=== PATIENT | male | born 1950 | race Caucasian/White ===

== ENCOUNTER 2019-06-22 12:32 | Inpatient (IN) | payer OTHER, MEDICAID ==
[~2019-06-22] VITALS: Ht 177.8 cm; Wt 102.5 kg
[2019-06-22 17:07] LABS: CHLORIDE 107 mEq/L (98-107)
[2019-06-22 17:09] LABS: INR 1.2; PARTIAL THROMBOPLASTIN TIME 28.7 sec (23.4-31.0); PROTHROMBIN TIME 13.1 sec (9.6-11.0)
[2019-06-22 17:10] LABS: ETHANOL BLOOD < 10 mg/dL
[2019-06-22 17:19] LABS: CREATINE KINASE MB FRACTION 1.3 ng/mL (0.5-3.6)
[2019-06-22 18:16] LABS: BASOPHILS % 1.3 % (0.0-2.0); EOSINOPHILS % 0.5 % (0.0-5.0); HEMATOCRIT. 29.1 % (42.0-52.0); HEMOGLOBIN. 9.7 g/dL (14.0-18.0); LYMPHOCYTES % 21.5 % (20.0-50.0); MEAN CORPUSCULAR HEMOGLOBIN 31.3 pg (28.0-32.0); MEAN CORPUSCULAR VOLUME 93.6 fL (80.0-94.0); MEAN PLATELET VOLUME 9.8 fl (7.4-10.4); MONOCYTES % 4.9 % (2.0-8.0); NEUTROPHILS % 71.8 % (40.0-76.0); PLATELET 73 x1000/uL (130-400); RED BLOOD CELL COUNT 3.11 mill/uL (4.7-6.1); RED CELL DISTRIBUTION WIDTH 18.1 % (11.6-14.6)
[2019-06-22 23:10] LABS: *AMPHETAMINES SCREEN URINE NEGATIVE (NEGATIVE); *BARBITURATES SCREEN URINE NEGATIVE (NEGATIVE); *BENZODIAZEPINES SCREEN URINE NEGATIVE (NEGATIVE); *COCAINE SCREEN URINE NEGATIVE (NEGATIVE); METHADONE URINE SCREEN NEGATIVE (NEGATIVE); OPIATES URINE SCREEN NEGATIVE (NEGATIVE)
[2019-06-22 23:11] LABS: CANNABINOID URINE SCREEN NEGATIVE (NEGATIVE); PHENCYCLIDINE URINE SCREEN NEGATIVE (NEGATIVE)
[2019-06-23] VITALS (59 sets, daily range): BP systolic 81–144; BP diastolic 37–78
[2019-06-23] MEDS: DEXT 5%/LACTATED RINGERS 1,000 ML IV SCH ×2 (05:35→19:45)
[2019-06-23] MEDS ORDERED: THROMBIN (BOVINE) 5000 UNITS/VIAL TOP ONE (06:37)
[2019-06-23] MEDS ORDERED: LIDOCAINE HCL/EPINEPHRINE 1%-EPI 1:100,000 20 ML VIAL ONE (06:38)
[2019-06-23] MEDS ORDERED: BACITRACIN 50,000 UNITS/VIAL ONE (06:38)
[2019-06-23] MEDS ORDERED: PNEUMOCOCCAL 23-VAL P-SAC VAC 0.5 ML IM ONE (08:00)
[2019-06-23] MEDS ORDERED: INFLUENZA VIRUS VACCINE(AFLURIA) 0.5ML SYR IM ONE (10:00)
[2019-06-23] MEDS ORDERED: HYDROCODONE/ACETAMINOPHEN 5/325MG TABLET PO PRN (10:15)
[2019-06-23] MEDS ORDERED: ONDANSETRON HCL 4MG/2ML INJ IV PRN (10:15)
[2019-06-23] MEDS ORDERED: ACETAMINOPHEN 325MG TABLET PO PRN (10:15)
[2019-06-23 15:34] LABS: BG BASE EXCESS -7.2 mmol/L (-2.0-2.0); BG CARBOXYHEMOGLOBIN 0.3 % (0.5-1.5); BG DEOXYHEMOGLOBIN 0.1 % (0.0-5.0); BG FRACTION INSPIRED OXYGEN 100; BG HCO3 ACT 17.5 mmol/L (22.0-26.0); BG METHEMOGLOBIN 0.4 % (0.0-1.5); BG OXYGEN SATURATION 99.9 % (92.0-98.5); BG OXYHEMOGLOBIN 99.2 % (94.0-97.0); BG PH 7.343 (7.350-7.450); BG PO2 518.1 mmHg (75.0-100.0); BG SAMPLE SITE A-LINE; BG TIDAL VOLUME(mL) 500 mL; BG TOTAL HEMOGLOBIN 12.8 g/dL (12.0-18.0); BG VENT MODE VENT - A/C; BG VENT RATE 10 set
[2019-06-23] MEDS ORDERED: PROPOFOL 10MG/ML 100ML 100 ML IV PRN (16:15)
[2019-06-23] MEDS: HYDROMORPHONE HCL/PF 2MG/ML CPJ IV PRN (19:45)
[2019-06-23] MEDS: PHENYLEPHRINE 40 MG in DEXT 5% WATER 246 ML IV PRN (20:25)
[2019-06-24] VITALS (67 sets, daily range): BP systolic 81–139; BP diastolic 41–114
[2019-06-24 08:15] LABS: BG BASE EXCESS -7.9 mmol/L (-2.0-2.0); BG CARBOXYHEMOGLOBIN 0.3 % (0.5-1.5); BG DEOXYHEMOGLOBIN 1.3 % (0.0-5.0); BG HCO3 ACT 15.1 mmol/L (22.0-26.0); BG METHEMOGLOBIN 0.1 % (0.0-1.5); BG OXYGEN SATURATION 98.7 % (92.0-98.5); BG OXYHEMOGLOBIN 98.3 % (94.0-97.0); BG PCO2 23.9 mmHg (35.0-45.0); BG PH 7.418 (7.350-7.450); BG SAMPLE SITE A-LINE; BG TIDAL VOLUME(mL) 500 mL; BG TOTAL HEMOGLOBIN 10.7 g/dL (12.0-18.0); BG VENT MODE VENT - A/C; BG VENT RATE 10 set
[2019-06-24 10:25] LABS: BG BASE EXCESS -5.9 mmol/L (-2.0-2.0); BG CARBOXYHEMOGLOBIN 0.3 % (0.5-1.5); BG CPAP (cmH2O) 0 cm(H2O); BG DEOXYHEMOGLOBIN 1.3 % (0.0-5.0); BG HCO3 ACT 17.6 mmol/L (22.0-26.0); BG METHEMOGLOBIN 0.6 % (0.0-1.5); BG OXYGEN SATURATION 98.7 % (92.0-98.5); BG OXYHEMOGLOBIN 97.8 % (94.0-97.0); BG PCO2 28.7 mmHg (35.0-45.0); BG PH 7.406 (7.350-7.450); BG PO2 153.3 mmHg (75.0-100.0); BG SAMPLE SITE A-LINE; BG TOTAL HEMOGLOBIN 11.9 g/dL (12.0-18.0); BG VENT MODE VENT - CPAP
[2019-06-24 12:42] LABS: BG BASE EXCESS -6.2 mmol/L (-2.0-2.0); BG CARBOXYHEMOGLOBIN 0.3 % (0.5-1.5); BG DEOXYHEMOGLOBIN 1.6 % (0.0-5.0); BG HCO3 ACT 17.4 mmol/L (22.0-26.0); BG METHEMOGLOBIN 0.3 % (0.0-1.5); BG OXYGEN SATURATION 98.4 % (92.0-98.5); BG OXYHEMOGLOBIN 97.8 % (94.0-97.0); BG PCO2 29.1 mmHg (35.0-45.0); BG PH 7.395 (7.350-7.450); BG SAMPLE SITE RIGHT RADIAL; BG VENT MODE MASK - AEROSOL
[2019-06-24 12:56] LABS: HEMATOCRIT. 33.1 % (42.0-52.0); HEMOGLOBIN. 11.3 g/dL (14.0-18.0); MEAN CORPUSCULAR VOLUME 93.2 fL (80.0-94.0); MEAN PLATELET VOLUME 8.5 fl (7.4-10.4); RED BLOOD CELL COUNT 3.55 mill/uL (4.7-6.1); RED CELL DISTRIBUTION WIDTH 18.8 % (11.6-14.6)
[2019-06-24 13:04] LABS: HEMATOCRIT. 32.5 % (42.0-52.0); HEMOGLOBIN. 11.1 g/dL (14.0-18.0); MEAN CORPUSCULAR HEMOGLOBIN 32.1 pg (28.0-32.0); MEAN CORPUSCULAR VOLUME 94.2 fL (80.0-94.0); MEAN PLATELET VOLUME 8.8 fl (7.4-10.4); RED BLOOD CELL COUNT 3.45 mill/uL (4.7-6.1); RED CELL DISTRIBUTION WIDTH 18.4 % (11.6-14.6)
[2019-06-24 13:05] LABS: PLATELET 88 x1000/uL (130-400)
[2019-06-24 13:10] LABS: PLATELET 98 x1000/uL (130-400)
[2019-06-24 13:14] LABS: PLATELET ESTIMATE DECREASED
[2019-06-24 13:27] LABS: PLATELET ESTIMATE DECREASED
[2019-06-24] MEDS: DEXT 5%/LACTATED RINGERS 1,000 ML IV SCH (14:17)
[2019-06-24] MEDS: HYDROMORPHONE HCL/PF 2MG/ML CPJ IV PRN (21:21)
[2019-06-25] VITALS (101 sets, daily range): BP systolic 67–124; BP diastolic 20–68
[2019-06-25] MEDS: PHENYLEPHRINE 40 MG in DEXT 5% WATER 246 ML IV PRN (01:43)
[2019-06-25] MEDS: DEXT 5%/LACTATED RINGERS 1,000 ML IV SCH (05:03)
[2019-06-25 10:04] LABS: BASOPHILS % 0.2 % (0.0-2.0); EOSINOPHILS % 0.3 % (0.0-5.0); HEMATOCRIT. 26.5 % (42.0-52.0); HEMOGLOBIN. 8.8 g/dL (14.0-18.0); LYMPHOCYTES % 16.8 % (20.0-50.0); MEAN CORPUSCULAR HEMOGLOBIN 31.2 pg (28.0-32.0); MEAN PLATELET VOLUME 9.7 fl (7.4-10.4); MONOCYTES % 6.3 % (2.0-8.0); NEUTROPHILS % 76.4 % (40.0-76.0); PLATELET 65 x1000/uL (130-400); RED BLOOD CELL COUNT 2.82 mill/uL (4.7-6.1); RED CELL DISTRIBUTION WIDTH 19.3 % (11.6-14.6)
[2019-06-25] MEDS: MIDODRINE HCL 5MG TABLET PO SCH ×3 (10:04→17:32)
[2019-06-25] MEDS ORDERED: PHENOL/SODIUM PHENOLATE 1.4% SRPAY 177ML MM SCH (11:00)
[2019-06-25] MEDS ORDERED: LACTATED RINGERS 1,000 ML IV SCH (12:15)
[2019-06-25] MEDS: SODIUM CHLORIDE 0.9% 1,000 ML IV SCH ×2 (14:03→22:12)
[2019-06-25] MEDS: HYDROMORPHONE HCL/PF 2MG/ML CPJ IV PRN ×2 (15:13→20:15)
[2019-06-25] MEDS ORDERED: ALBUMIN HUMAN 12.5G/250ML (5%) IV NR (15:30)
[2019-06-25 17:37] LABS: TOTAL IRON BINDING CAPACITY 229 ug/dL (250-450)
[2019-06-26] VITALS (95 sets, daily range): BP systolic 60–121; BP diastolic 29–89
[2019-06-26] MEDS: HYDROMORPHONE HCL/PF 2MG/ML CPJ IV PRN ×4 (01:45→23:30)
[2019-06-26] MEDS: SODIUM CHLORIDE 0.9% 1,000 ML IV SCH ×3 (05:44→22:02)
[2019-06-26 08:13] LABS: HEMATOCRIT. 32.8 % (42.0-52.0); HEMOGLOBIN. 11.1 g/dL (14.0-18.0); MEAN CORPUSCULAR HEMOGLOBIN 33.6 pg (28.0-32.0); MEAN CORPUSCULAR VOLUME 98.9 fL (80.0-94.0); MEAN PLATELET VOLUME 10.5 fl (7.4-10.4); PLATELET 103 x1000/uL (130-400); RED BLOOD CELL COUNT 3.32 mill/uL (4.7-6.1); RED CELL DISTRIBUTION WIDTH 19.7 % (11.6-14.6)
[2019-06-26] MEDS: MIDODRINE HCL 5MG TABLET PO SCH ×3 (09:16→17:00)
[2019-06-26] MEDS ORDERED: LIDOCAINE HCL 1% 20ML VIAL (Pyxis) INJ ONE (10:17)
[2019-06-26 10:49] LABS: PLATELET ESTIMATE DECREASED
[2019-06-26] MEDS: ALBUMIN HUMAN 12.5GM/50ML (25%) IV SCH ×5 (11:21→23:30)
[2019-06-26 17:00] LABS: INR 1.4; PROTHROMBIN TIME 15.4 sec (9.6-11.0)
[2019-06-26] MEDS: PHENYLEPHRINE 40 MG in DEXT 5% WATER 246 ML IV PRN (18:07)
[2019-06-26] MEDS: PHENYLEPHRINE 80 MG in DEXT 5% WATER 492 ML IV PRN (22:03)
[2019-06-27] VITALS (99 sets, daily range): BP systolic 80–150; BP diastolic 32–99
[2019-06-27] MEDS: ALBUMIN HUMAN 12.5GM/50ML (25%) IV SCH (03:30)
[2019-06-27] MEDS: SODIUM CHLORIDE 0.9% 1,000 ML IV SCH ×3 (05:38→21:03)
[2019-06-27] MEDS: PHENYLEPHRINE 80 MG in DEXT 5% WATER 492 ML IV PRN ×2 (07:58→17:58)
[2019-06-27] MEDS: MIDODRINE HCL 5MG TABLET PO SCH ×3 (09:23→21:05)
[2019-06-27] MEDS: HYDROMORPHONE HCL/PF 2MG/ML CPJ IV PRN ×2 (09:24→21:12)
[2019-06-27 10:47] LABS: HEMATOCRIT. 31.4 % (42.0-52.0); HEMOGLOBIN. 10.5 g/dL (14.0-18.0); MEAN CORPUSCULAR HEMOGLOBIN 31.2 pg (28.0-32.0); MEAN CORPUSCULAR VOLUME 93.7 fL (80.0-94.0); MEAN PLATELET VOLUME 8.6 fl (7.4-10.4); RED BLOOD CELL COUNT 3.35 mill/uL (4.7-6.1); RED CELL DISTRIBUTION WIDTH 18.7 % (11.6-14.6)
[2019-06-27 10:48] LABS: PLATELET 81 x1000/uL (130-400)
[2019-06-27 11:24] LABS: PLATELET ESTIMATE DECREASED
[2019-06-27] MEDS ORDERED: MIDODRINE HCL 5MG TABLET PO SCH (13:00)
[2019-06-27 13:03] LABS: INR 1.7; PROTHROMBIN TIME 18.1 sec (9.6-11.0)
[2019-06-27] MEDS ORDERED: RACEPINEPHRINE 2.25% 0.5ML NEB VIAL HHN PRN (13:45)
[2019-06-28] VITALS (64 sets, daily range): BP systolic 76–150; BP diastolic 36–69
[2019-06-28] MEDS: SODIUM CHLORIDE 0.9% 1,000 ML IV SCH ×2 (05:26→16:38)
[2019-06-28] MEDS: MIDODRINE HCL 5MG TABLET PO SCH ×3 (05:38→22:00)
[2019-06-28 07:14] LABS: HEMATOCRIT. 28.9 % (42.0-52.0); MEAN CORPUSCULAR HEMOGLOBIN 33.8 pg (28.0-32.0); MEAN CORPUSCULAR VOLUME 97.5 fL (80.0-94.0); MEAN PLATELET VOLUME 9.1 fl (7.4-10.4); PLATELET 64 x1000/uL (130-400); RED BLOOD CELL COUNT 2.96 mill/uL (4.7-6.1); RED CELL DISTRIBUTION WIDTH 18.7 % (11.6-14.6)
[2019-06-28] MEDS: HYDROMORPHONE HCL/PF 2MG/ML CPJ IV PRN ×2 (08:36→11:06)
[2019-06-28 08:44] LABS: PLATELET ESTIMATE DECREASED
[2019-06-28] MEDS: HYDROCODONE/ACETAMINOPHEN 5/325MG TABLET PO PRN (22:51)
[2019-06-29] VITALS: BP 127/62
[2019-06-29 04:00] VITALS: BP 107/50
[2019-06-29] MEDS: SODIUM CHLORIDE 0.9% 1,000 ML IV SCH ×3 (04:51→13:03)
[2019-06-29] MEDS: MIDODRINE HCL 5MG TABLET PO SCH ×3 (06:20→22:38)
[2019-06-29] MEDS: HYDROCODONE/ACETAMINOPHEN 5/325MG TABLET PO PRN (06:20)
[2019-06-29 08:00] VITALS: BP 135/54
[2019-06-29 09:27] LABS: HEMATOCRIT. 28.4 % (42.0-52.0); HEMOGLOBIN. 9.6 g/dL (14.0-18.0); MEAN CORPUSCULAR HEMOGLOBIN 32.6 pg (28.0-32.0); MEAN CORPUSCULAR VOLUME 96.6 fL (80.0-94.0); MEAN PLATELET VOLUME 8.6 fl (7.4-10.4); PLATELET 56 x1000/uL (130-400); RED BLOOD CELL COUNT 2.94 mill/uL (4.7-6.1); RED CELL DISTRIBUTION WIDTH 19.5 % (11.6-14.6)
[2019-06-29 11:07] LABS: PLATELET ESTIMATE DECREASED
[2019-06-29 12:00] VITALS: BP 115/53
[2019-06-29] MEDS ORDERED: HYDROCODONE/ACETAMINOPHEN 5/325MG TABLET PO PRN (12:45)
[2019-06-29 16:00] VITALS: BP 125/52
[2019-06-29 20:00] VITALS: BP 117/55
[2019-06-30] VITALS (8 sets, daily range): BP systolic 105–123; BP diastolic 48–63
[2019-06-30] MEDS: MIDODRINE HCL 5MG TABLET PO SCH ×2 (05:16→14:00)
[2019-06-30 10:49] LABS: HEMATOCRIT. 27.1 % (42.0-52.0); HEMOGLOBIN. 9.5 g/dL (14.0-18.0); MEAN CORPUSCULAR HEMOGLOBIN 32.6 pg (28.0-32.0); MEAN CORPUSCULAR VOLUME 92.9 fL (80.0-94.0); MEAN PLATELET VOLUME 8.5 fl (7.4-10.4); RED BLOOD CELL COUNT 2.92 mill/uL (4.7-6.1); RED CELL DISTRIBUTION WIDTH 18.5 % (11.6-14.6)
[2019-06-30 10:50] LABS: PLATELET 87 x1000/uL (130-400)
[2019-06-30 11:41] LABS: PLATELET ESTIMATE DECREASED
== END 2019-06-30 21:55 | DRG 471 ==
LOC: ER 14:16 → EDBEDREQTM 20:30 → EDBEDREQ 20:30 → MICUSO 20:43 → EDBEDREQTM 20:45 → EDBEDREQSVC 20:45 → EDBEDREQ 20:46 → 6WST 06-28 16:12
PROVIDERS: ADMIT Internal Medicine; ATTEND Internal Medicine
PROC: 0RG2071 Fusion of 2 or more Cervical Vertebral Joints with Autologous Tissue Substitute, Posterior Approach, Posterior Column, Open Approach (ICD-10-PCS; principal; 2019-06-23)
PROC: 00NW0ZZ Release Cervical Spinal Cord, Open Approach (ICD-10-PCS; 2019-06-23)
PROC: 4A11X4G Monitoring of Peripheral Nervous Electrical Activity, Intraoperative, External Approach (ICD-10-PCS; 2019-06-23)
PROC: 02HV33Z Insertion of Infusion Device into Superior Vena Cava, Percutaneous Approach (ICD-10-PCS; 2019-06-26)
PROC: B548ZZA Ultrasonography of Superior Vena Cava, Guidance (ICD-10-PCS; 2019-06-26)
DX: M48.02 Spinal stenosis, cervical region (principal); G82.50 Quadriplegia, unspecified; K76.7 Hepatorenal syndrome; N17.9 Acute kidney failure, unspecified; I50.32 Chronic diastolic (congestive) heart failure; E46 Unspecified protein-calorie malnutrition; D68.9 Coagulation defect, unspecified; I13.0 Hypertensive heart and chronic kidney disease with heart failure and stage 1 through stage 4 chronic kidney disease, or unspecified chronic kidney disease; M47.12 Other spondylosis with myelopathy, cervical region; G99.2 Myelopathy in diseases classified elsewhere; D64.9 Anemia, unspecified; N18.9 Chronic kidney disease, unspecified; E86.0 Dehydration; D69.59 Other secondary thrombocytopenia; E78.00 Pure hypercholesterolemia, unspecified; E78.1 Pure hyperglyceridemia; F17.210 Nicotine dependence, cigarettes, uncomplicated; I25.10 Atherosclerotic heart disease of native coronary artery without angina pectoris; I83.90 Asymptomatic varicose veins of unspecified lower extremity; J44.9 Chronic obstructive pulmonary disease, unspecified; K59.00 Constipation, unspecified; K70.30 Alcoholic cirrhosis of liver without ascites; K72.90 Hepatic failure, unspecified without coma; M47.22 Other spondylosis with radiculopathy, cervical region; R62.7 Adult failure to thrive; S20.211A Contusion of right front wall of thorax, initial encounter; W18.39XA Other fall on same level, initial encounter; I95.9 Hypotension, unspecified; R16.0 Hepatomegaly, not elsewhere classified; R29.6 Repeated falls; G90.8 Other disorders of autonomic nervous system; K80.20 Calculus of gallbladder without cholecystitis without obstruction; R16.1 Splenomegaly, not elsewhere classified; D15.1 Benign neoplasm of heart; Y93.89 Activity, other specified; Z68.32 Body mass index [BMI] 32.0-32.9, adult; Y92.89 Other specified places as the place of occurrence of the external cause; Y99.8 Other external cause status
CPT/HCPCS: 36415; 36600; 71045; 71250; 72040; 72141; 74176; 76000; 76700; 76937; 80048; 80053; 80305; 80320; 82105; 82375; 82550; 82553; 82728; 82805; 82962; 83540; 83550; 83605; 83735; 83880; 84134; 84145; 84478; 84484; 85025; 85651; 86141; 86850; 86900; 86920; 88304; 88311; 90686; 90732; 92610; 93005; 93306; 93308; 93970; 94002; 94003; 97162; 97166; 97530; 99285; C1713; C1725; J1170; J2370; J2704; J3490; J7030; J7060; J7121; L0172; P9041; P9047; G0480

== ENCOUNTER 2019-07-12 11:11 | Inpatient (IN) | payer OTHER, MEDICAID ==
[~2019-07-12] VITALS: Ht 172.7 cm; Wt 108.9 kg
[2019-07-12 13:02] LABS: INR 1.4
[2019-07-12 13:03] LABS: CHLORIDE 105 mEq/L (98-107)
[2019-07-12 13:18] LABS: BG BASE EXCESS -12.5 mmol/L (-2.0-2.0); BG CARBOXYHEMOGLOBIN 0.3 % (0.5-1.5); BG DEOXYHEMOGLOBIN 6.2 % (0.0-5.0); BG FRACTION INSPIRED OXYGEN 21; BG HCO3 ACT 12.7 mmol/L (22.0-26.0); BG METHEMOGLOBIN 0.4 % (0.0-1.5); BG OXYGEN SATURATION 93.8 % (92.0-98.5); BG OXYHEMOGLOBIN 93.1 % (94.0-97.0); BG PCO2 27.1 mmHg (35.0-45.0); BG PH 7.288 (7.350-7.450); BG PO2 74.3 mmHg (75.0-100.0); BG SAMPLE SITE RIGHT RADIAL; BG TOTAL HEMOGLOBIN 10.7 g/dL (12.0-18.0); BG VENT MODE ROOM AIR
[2019-07-12] MEDS ORDERED: MORPHINE SULFATE 4 MG/ML CPJ (NOT FOR IM USE) IV ONE ×2 (13:30→16:15)
[2019-07-12] MEDS ORDERED: ONDANSETRON HCL 4MG/2ML INJ IV ONE ×2 (13:30→16:15)
[2019-07-12 13:46] LABS: HEMATOCRIT. 26.9 % (42.0-52.0); HEMOGLOBIN. 10.4 g/dL (14.0-18.0); MEAN CORPUSCULAR HEMOGLOBIN 44.1 pg (28.0-32.0); MEAN CORPUSCULAR VOLUME 114.2 fL (80.0-94.0); MEAN PLATELET VOLUME 8.3 fl (7.4-10.4); PLATELET 155 x1000/uL (130-400); RED BLOOD CELL COUNT 2.35 mill/uL (4.7-6.1); RED CELL DISTRIBUTION WIDTH 23.7 % (11.6-14.6)
[2019-07-12 15:32] LABS: PLATELET ESTIMATE NORMAL
[2019-07-13 00:30] VITALS: BP 108/54
[2019-07-13] MEDS ORDERED: MIDO5TAB4 PO (01:07)
[2019-07-13] MEDS ORDERED: DONE5TAB7 PO (01:07)
[2019-07-13] MEDS ORDERED: TOPUD PO (01:07)
[2019-07-13] MEDS ORDERED: HYDR-3281 PO (01:07)
[2019-07-13] MEDS ORDERED: FURO-152 PO (01:07)
[2019-07-13] MEDS: HYDROCODONE/ACETAMINOPHEN 5/325MG TABLET PO PRN ×3 (01:35→18:22)
[2019-07-13] MEDS ORDERED: SODIUM POLYSTYRENE SULFONATE 15 G/60 ML BOT PO SCH (03:00)
[2019-07-13 04:00] VITALS: BP 108/55
[2019-07-13 08:00] VITALS: BP 123/60
[2019-07-13] MEDS ORDERED: FUROSEMIDE 40MG/4ML VIAL IVP SCH (09:00)
[2019-07-13] MEDS ORDERED: SODIUM POLYSTYRENE SULFONATE 15 G/60 ML BOT PO NR (09:30)
[2019-07-13] MEDS: MIDODRINE HCL 5MG TABLET PO SCH ×3 (09:49→18:21)
[2019-07-13] MEDS: DONEPEZIL HCL 5MG TABLET PO SCH (09:50)
[2019-07-13 12:00] VITALS: BP 102/63
[2019-07-13 12:33] LABS: PLATELET 115 x1000/uL (130-400)
[2019-07-13 12:34] LABS: HEMATOCRIT. 29.8 % (42.0-52.0); HEMOGLOBIN. 10.4 g/dL (14.0-18.0); MEAN CORPUSCULAR HEMOGLOBIN 34.6 pg (28.0-32.0); MEAN PLATELET VOLUME 8.3 fl (7.4-10.4); RED BLOOD CELL COUNT 3.01 mill/uL (4.7-6.1); RED CELL DISTRIBUTION WIDTH 21.5 % (11.6-14.6)
[2019-07-13 12:54] LABS: PLATELET ESTIMATE DECREASED
[2019-07-13] MEDS ORDERED: ALBUMIN HUMAN 25GM/100ML (25%) IV NR (14:00)
[2019-07-13] MEDS ORDERED: LEVOFLOXACIN 500MG PREMIX 100 ML IV SCH (15:00)
[2019-07-13] MEDS: CITRIC ACID/SODIUM CITRATE SOLN 30ML UDC PO SCH ×2 (15:33→18:20)
[2019-07-13 16:00] VITALS: BP 112/51
[2019-07-13] MEDS: BLOOD SUGAR DIAGNOSTIC STRIP TEST SCH ×2 (17:20→21:00)
[2019-07-13 17:24] LABS: CLARITY URINE TURBID (CLEAR); COLOR URINE DARK YELLOW (YELLOW); KETONES URINE NEGATIVE (NEGATIVE); LEUKOCYTE ESTERASE URINE 1+ (NEGATIVE); NITRITE URINE NEGATIVE (NEGATIVE); OCCULT BLOOD URINE 3+ (NEGATIVE); PROTEIN URINE 2+ (NEGATIVE); SPECIFIC GRAVITY URINE 1.014 (1.005-1.030)
[2019-07-13] MEDS: INSULIN LISPRO 100 UNITS/ML SUBCUT SCH ×2 (17:50→21:00)
[2019-07-13 18:05] LABS: SODIUM URINE RANDOM 30 mEq/L
[2019-07-13] MEDS: PANTOPRAZOLE SODIUM 40 MG/VIAL IV SCH (18:21)
[2019-07-13 20:00] VITALS: BP 109/68
[2019-07-14] VITALS: BP 103/80
[2019-07-14 04:00] VITALS: BP 100/59
[2019-07-14] MEDS: BLOOD SUGAR DIAGNOSTIC STRIP TEST SCH ×4 (06:39→21:23)
[2019-07-14] MEDS: INSULIN LISPRO 100 UNITS/ML SUBCUT SCH ×4 (07:50→21:00)
[2019-07-14 08:00] VITALS: BP 99/51
[2019-07-14 09:14] LABS: HEMATOCRIT. 23.3 % (42.0-52.0); HEMOGLOBIN. 7.9 g/dL (14.0-18.0); MEAN CORPUSCULAR HEMOGLOBIN 36.5 pg (28.0-32.0); PLATELET 65 x1000/uL (130-400); RED BLOOD CELL COUNT 2.17 mill/uL (4.7-6.1); RED CELL DISTRIBUTION WIDTH 23.8 % (11.6-14.6)
[2019-07-14 09:25] LABS: PHOSPHORUS 5.7 mg/dL (2.5-4.9)
[2019-07-14] MEDS ORDERED: SODIUM POLYSTYRENE SULFONATE 15 G/60 ML BOT PO NR (09:45)
[2019-07-14] MEDS ORDERED: ALBUMIN HUMAN 25GM/100ML (25%) IV NR (09:45)
[2019-07-14] MEDS: DONEPEZIL HCL 5MG TABLET PO SCH (11:19)
[2019-07-14] MEDS: PANTOPRAZOLE SODIUM 40 MG/VIAL IV SCH ×2 (11:19→17:57)
[2019-07-14] MEDS: CITRIC ACID/SODIUM CITRATE SOLN 30ML UDC PO SCH ×3 (11:19→17:57)
[2019-07-14] MEDS: MIDODRINE HCL 5MG TABLET PO SCH ×3 (11:22→17:57)
[2019-07-14 11:23] LABS: PLATELET ESTIMATE DECREASED
[2019-07-14] MEDS: HYDROCODONE/ACETAMINOPHEN 5/325MG TABLET PO PRN ×2 (11:49→15:54)
[2019-07-14 12:00] VITALS: BP 101/57
[2019-07-14] MEDS ORDERED: SODIUM BICARBONATE 4% (2.4MEQ) 5ML VIAL IV ONE (12:06)
[2019-07-14] MEDS ORDERED: LIDOCAINE HCL 1% 20ML VIAL (Pyxis) INJ ONE (12:06)
[2019-07-14] MEDS ORDERED: LEVOFLOXACIN 250MG PREMIX 50 ML IV SCH (15:00)
[2019-07-14] MEDS: CEFTRIAXONE 1 G PREMIX 50 ML IV SCH (15:09)
[2019-07-14 15:11] LABS: HEPATITIS B SURFACE AB 50.1 mIU/mL
[2019-07-14 15:22] LABS: HEPATITIS B SURFACE ANTIGEN NEGATIVE
[2019-07-14 16:00] VITALS: BP 101/52
[2019-07-14] MEDS: MORPHINE SULFATE 2 MG/ML CPJ (NOT FOR IM USE) IV PRN ×2 (18:10→22:30)
[2019-07-14 20:00] VITALS: BP 98/58
[2019-07-14] MEDS: DEXTROSE 50% WATER 50ML SYRINGE IV PRN (22:30)
[2019-07-15] VITALS: BP 99/50
[2019-07-15 04:30] VITALS: BP 105/55
[2019-07-15] MEDS: BLOOD SUGAR DIAGNOSTIC STRIP TEST SCH ×4 (06:22→21:00)
[2019-07-15] MEDS: INSULIN LISPRO 100 UNITS/ML SUBCUT SCH ×4 (07:38→21:00)
[2019-07-15 08:00] VITALS: BP 116/49
[2019-07-15] MEDS: CITRIC ACID/SODIUM CITRATE SOLN 30ML UDC PO SCH ×3 (08:52→17:00)
[2019-07-15] MEDS: PANTOPRAZOLE SODIUM 40 MG/VIAL IV SCH ×2 (08:52→18:00)
[2019-07-15] MEDS: MIDODRINE HCL 5MG TABLET PO SCH ×3 (08:53→17:00)
[2019-07-15] MEDS: DONEPEZIL HCL 5MG TABLET PO SCH (08:54)
[2019-07-15 09:17] LABS: PHOSPHORUS 4.5 mg/dL (2.5-4.9)
[2019-07-15 10:10] LABS: HEMOGLOBIN. 10.1 g/dL (14.0-18.0); MEAN PLATELET VOLUME 8.6 fl (7.4-10.4); RED BLOOD CELL COUNT 2.87 mill/uL (4.7-6.1)
[2019-07-15 10:11] LABS: HEMATOCRIT. 28.4 % (42.0-52.0); MEAN CORPUSCULAR HEMOGLOBIN 35.2 pg (28.0-32.0); RED CELL DISTRIBUTION WIDTH 22.9 % (11.6-14.6)
[2019-07-15 12:00] VITALS: BP 82/42
[2019-07-15] MEDS ORDERED: ALBUMIN HUMAN 25GM/100ML (25%) IV NR (13:00)
[2019-07-15 13:26] LABS: PLATELET ESTIMATE DECREASED
[2019-07-15 13:27] LABS: PLATELET 104 x1000/uL (130-400)
[2019-07-15] MEDS: CEFTRIAXONE 1 G PREMIX 50 ML IV SCH (15:01)
[2019-07-15 16:00] VITALS: BP 87/51
[2019-07-15 20:40] VITALS: BP 109/46
[2019-07-16] VITALS: BP 111/50
[2019-07-16 04:00] VITALS: BP 95/47
[2019-07-16] MEDS: BLOOD SUGAR DIAGNOSTIC STRIP TEST SCH ×4 (06:37→20:44)
[2019-07-16] MEDS: INSULIN LISPRO 100 UNITS/ML SUBCUT SCH ×4 (07:17→20:44)
[2019-07-16 08:22] VITALS: BP 96/49
[2019-07-16] MEDS: DONEPEZIL HCL 5MG TABLET PO SCH (08:32)
[2019-07-16] MEDS: CITRIC ACID/SODIUM CITRATE SOLN 30ML UDC PO SCH (08:32)
[2019-07-16] MEDS: MIDODRINE HCL 5MG TABLET PO SCH ×3 (08:32→16:46)
[2019-07-16] MEDS: PANTOPRAZOLE SODIUM 40 MG/VIAL IV SCH ×2 (08:32→16:46)
[2019-07-16] MEDS ORDERED: ONDANSETRON HCL 4MG/2ML INJ IV PRN (09:00)
[2019-07-16 12:04] VITALS: BP 98/39
[2019-07-16] MEDS: CEFTRIAXONE 1 G PREMIX 50 ML IV SCH (13:50)
[2019-07-16 16:33] VITALS: BP 87/38
[2019-07-16 16:49] LABS: HEMATOCRIT. 28.8 % (42.0-52.0); MEAN CORPUSCULAR HEMOGLOBIN 34.3 pg (28.0-32.0); MEAN CORPUSCULAR VOLUME 98.3 fL (80.0-94.0); RED BLOOD CELL COUNT 2.93 mill/uL (4.7-6.1)
[2019-07-16 16:50] LABS: RED CELL DISTRIBUTION WIDTH 23.8 % (11.6-14.6)
[2019-07-16 20:00] VITALS: BP 107/54
[2019-07-16] MEDS: FUROSEMIDE 40MG TABLET PO SCH (21:43)
[2019-07-17] VITALS (7 sets, daily range): BP systolic 91–98; BP diastolic 36–49
[2019-07-17] MEDS: MORPHINE SULFATE 2 MG/ML CPJ (NOT FOR IM USE) IV PRN ×2 (01:13→05:18)
[2019-07-17 07:35] LABS: BASOPHILS % 0.6 % (0.0-2.0); EOSINOPHILS % 0.5 % (0.0-5.0); HEMATOCRIT. 29.4 % (42.0-52.0); HEMOGLOBIN. 9.8 g/dL (14.0-18.0); MEAN CORPUSCULAR HEMOGLOBIN 34.5 pg (28.0-32.0); MEAN CORPUSCULAR VOLUME 103.9 fL (80.0-94.0); MEAN PLATELET VOLUME 9.7 fl (7.4-10.4); MONOCYTES % 11.2 % (2.0-8.0); NEUTROPHILS % 42.7 % (40.0-76.0); PLATELET 69 x1000/uL (130-400); RED BLOOD CELL COUNT 2.83 mill/uL (4.7-6.1); RED CELL DISTRIBUTION WIDTH 25.1 % (11.6-14.6)
[2019-07-17 07:47] LABS: PLATELET ESTIMATE DECREASED
[2019-07-17 07:48] LABS: MEAN PLATELET VOLUME 9.1 fl (7.4-10.4); PLATELET 81 x1000/uL (130-400)
[2019-07-17] MEDS: INSULIN LISPRO 100 UNITS/ML SUBCUT SCH ×4 (07:50→21:00)
[2019-07-17 07:55] LABS: CHLORIDE 106 mEq/L (98-107); PHOSPHORUS 3.7 mg/dL (2.5-4.9)
[2019-07-17] MEDS: BLOOD SUGAR DIAGNOSTIC STRIP TEST SCH ×4 (07:56→21:37)
[2019-07-17] MEDS: PANTOPRAZOLE SODIUM 40 MG/VIAL IV SCH ×2 (09:00→16:22)
[2019-07-17] MEDS: MIDODRINE HCL 5MG TABLET PO SCH ×3 (10:34→16:36)
[2019-07-17] MEDS: DONEPEZIL HCL 5MG TABLET PO SCH (10:35)
[2019-07-17] MEDS: FUROSEMIDE 40MG TABLET PO SCH ×2 (10:35→21:37)
[2019-07-17 12:00] LABS: PLATELET ESTIMATE DECREASED
[2019-07-17] MEDS: CEFTRIAXONE 1 G PREMIX 50 ML IV SCH (14:49)
[2019-07-18] MEDS: DIPHENHYDRAMINE 50MG/ML VIAL IV PRN ×2 (00:24→22:56)
[2019-07-18 04:00] VITALS: BP 108/46
[2019-07-18] MEDS: BLOOD SUGAR DIAGNOSTIC STRIP TEST SCH ×4 (06:40→21:00)
[2019-07-18 07:07] LABS: PHOSPHORUS 4.1 mg/dL (2.5-4.9)
[2019-07-18] MEDS: INSULIN LISPRO 100 UNITS/ML SUBCUT SCH ×4 (07:50→21:00)
[2019-07-18 08:00] VITALS: BP 117/70
[2019-07-18] MEDS: MIDODRINE HCL 5MG TABLET PO SCH ×3 (09:47→17:53)
[2019-07-18] MEDS: PANTOPRAZOLE SODIUM 40 MG/VIAL IV SCH ×2 (09:47→17:52)
[2019-07-18] MEDS: FUROSEMIDE 40MG TABLET PO SCH ×2 (09:47→22:56)
[2019-07-18] MEDS: DONEPEZIL HCL 5MG TABLET PO SCH (09:47)
[2019-07-18 09:56] LABS: HEMATOCRIT. 30.9 % (42.0-52.0); HEMOGLOBIN. 10.4 g/dL (14.0-18.0); MEAN CORPUSCULAR HEMOGLOBIN 32.9 pg (28.0-32.0); MEAN CORPUSCULAR VOLUME 97.2 fL (80.0-94.0); MEAN PLATELET VOLUME 7.8 fl (7.4-10.4); RED BLOOD CELL COUNT 3.18 mill/uL (4.7-6.1); RED CELL DISTRIBUTION WIDTH 23.7 % (11.6-14.6)
[2019-07-18 09:57] LABS: PLATELET 92 x1000/uL (130-400)
[2019-07-18 12:00] VITALS: BP 111/56
[2019-07-18 12:18] LABS: PLATELET ESTIMATE DECREASED
[2019-07-18 13:11] LABS: ANTI-MYELOPEROXIDASE AB < 9.0 U/mL (0.0-9.0); ANTI-PROTEINASE 3 ABS < 3.5 U/mL (0.0-3.5); ATYPICAL P-ANCA <1:20 titer (Neg:<1:20); CYTOPLASMIC C-ANCA <1:20 titer (Neg:<1:20); PERINUCLEAR P-ANCA <1:20 titer (Neg:<1:20)
[2019-07-18] MEDS: CEFTRIAXONE 1 G PREMIX 50 ML IV SCH (14:18)
[2019-07-18 16:00] VITALS: BP 102/48
[2019-07-18 20:22] VITALS: BP 105/52
[2019-07-19] VITALS: BP 101/49
[2019-07-19 04:00] VITALS: BP 98/46
[2019-07-19 06:09] LABS: INR 1.9; PROTHROMBIN TIME 19.8 sec (9.6-11.0)
[2019-07-19] MEDS: BLOOD SUGAR DIAGNOSTIC STRIP TEST SCH ×4 (06:32→21:00)
[2019-07-19 06:35] LABS: PHOSPHORUS 4.2 mg/dL (2.5-4.9)
[2019-07-19 07:12] LABS: GLOMERULAR BASEMENT MEMB AB 4 units (0-20)
[2019-07-19] MEDS: INSULIN LISPRO 100 UNITS/ML SUBCUT SCH ×4 (07:32→21:00)
[2019-07-19 08:00] VITALS: BP 126/77
[2019-07-19] MEDS: PANTOPRAZOLE SODIUM 40 MG/VIAL IV SCH ×2 (09:07→17:15)
[2019-07-19] MEDS: FUROSEMIDE 40MG TABLET PO SCH ×2 (09:08→21:00)
[2019-07-19] MEDS: MIDODRINE HCL 5MG TABLET PO SCH ×3 (09:08→17:15)
[2019-07-19] MEDS: DONEPEZIL HCL 5MG TABLET PO SCH (09:08)
[2019-07-19] MEDS: MORPHINE SULFATE 2 MG/ML CPJ (NOT FOR IM USE) IV PRN ×2 (09:09→13:13)
[2019-07-19 10:31] LABS: HEMATOCRIT. 31.2 % (42.0-52.0); HEMOGLOBIN. 10.7 g/dL (14.0-18.0); MEAN CORPUSCULAR HEMOGLOBIN 33.7 pg (28.0-32.0); MEAN CORPUSCULAR VOLUME 97.9 fL (80.0-94.0); RED BLOOD CELL COUNT 3.18 mill/uL (4.7-6.1); RED CELL DISTRIBUTION WIDTH 23.2 % (11.6-14.6)
[2019-07-19 11:23] LABS: MEAN PLATELET VOLUME 9.3 fl (7.4-10.4); PLATELET 86 x1000/uL (130-400); PLATELET ESTIMATE DECREASED
[2019-07-19 12:00] VITALS: BP 102/58
[2019-07-19] MEDS: LEVOFLOXACIN 250MG TABLET PO SCH (13:13)
[2019-07-19 16:00] VITALS: BP 105/55
[2019-07-19 16:09] VITALS: BP_SYST 102; BP_SYST 105; BP_DIAS 55; BP_DIAS 58
[2019-07-19] MEDS: ACETAMINOPHEN 325MG TABLET PO PRN (20:33)
[2019-07-19] MEDS ORDERED: NITROFURANTOIN 100MG M/M CAPSULE PO SCH (21:00)
[2019-07-20] VITALS: BP 87/51
[2019-07-20] MEDS: ACETAMINOPHEN 325MG TABLET PO PRN (03:34)
[2019-07-20 04:00] VITALS: BP 96/54
[2019-07-20] MEDS: INSULIN LISPRO 100 UNITS/ML SUBCUT SCH ×4 (05:26→20:31)
[2019-07-20] MEDS: BLOOD SUGAR DIAGNOSTIC STRIP TEST SCH ×4 (05:26→20:31)
[2019-07-20] MEDS: HYDROCODONE/ACETAMINOPHEN 5/325MG TABLET PO PRN ×2 (05:44→10:32)
[2019-07-20 08:00] VITALS: BP 113/52
[2019-07-20] MEDS: DONEPEZIL HCL 5MG TABLET PO SCH (09:25)
[2019-07-20] MEDS: MIDODRINE HCL 5MG TABLET PO SCH ×3 (09:26→18:05)
[2019-07-20] MEDS: FUROSEMIDE 40MG TABLET PO SCH ×2 (09:27→20:30)
[2019-07-20 12:00] VITALS: BP 99/56
[2019-07-20 16:00] VITALS: BP 102/49
[2019-07-20] MEDS: PANTOPRAZOLE SODIUM 40 MG/VIAL IV SCH (18:04)
[2019-07-20 20:00] VITALS: BP 83/34
[2019-07-21] VITALS (7 sets, daily range): BP systolic 74–98; BP diastolic 32–63
[2019-07-21] MEDS: DIPHENHYDRAMINE 50MG/ML VIAL IV PRN (00:36)
[2019-07-21] MEDS: HYDROCODONE/ACETAMINOPHEN 5/325MG TABLET PO PRN (01:21)
[2019-07-21] MEDS: BLOOD SUGAR DIAGNOSTIC STRIP TEST SCH ×4 (06:42→21:05)
[2019-07-21 06:47] LABS: INR 2.1; PROTHROMBIN TIME 22.2 sec (9.6-11.0)
[2019-07-21] MEDS: INSULIN LISPRO 100 UNITS/ML SUBCUT SCH ×3 (06:55→21:00)
[2019-07-21] MEDS: DEXTROSE 50% WATER 50ML SYRINGE IV PRN ×3 (07:54→21:12)
[2019-07-21] MEDS: DEXT 5%/0.45% NACL 1000ML 1,000 ML IV SCH (08:30)
[2019-07-21] MEDS: DONEPEZIL HCL 5MG TABLET PO SCH (09:04)
[2019-07-21] MEDS: PANTOPRAZOLE SODIUM 40 MG/VIAL IV SCH ×2 (09:04→16:23)
[2019-07-21] MEDS: MIDODRINE HCL 5MG TABLET PO SCH ×3 (09:04→19:08)
[2019-07-21] MEDS: MORPHINE SULFATE 2 MG/ML CPJ (NOT FOR IM USE) IV PRN (09:04)
[2019-07-21] MEDS: FUROSEMIDE 40MG TABLET PO SCH ×2 (09:04→21:00)
[2019-07-21] MEDS ORDERED: PHYTONADIONE 10MG/ML AMP SUBCUT SCH (13:30)
[2019-07-21] MEDS: MEGESTROL ACETATE 400 MG/10 ML UDC PO SCH (13:45)
[2019-07-21] MEDS: LEVOFLOXACIN 250MG TABLET PO SCH (16:21)
[2019-07-22] VITALS: BP 90/54
[2019-07-22 04:00] VITALS: BP 78/52
[2019-07-22] MEDS: DEXTROSE 50% WATER 50ML SYRINGE IV PRN ×2 (06:22→07:30)
[2019-07-22] MEDS: BLOOD SUGAR DIAGNOSTIC STRIP TEST SCH ×2 (06:43→12:03)
[2019-07-22] MEDS: INSULIN LISPRO 100 UNITS/ML SUBCUT SCH ×2 (07:34→12:04)
[2019-07-22 08:00] VITALS: BP 83/56
[2019-07-22] MEDS: MEGESTROL ACETATE 400 MG/10 ML UDC PO SCH (09:30)
[2019-07-22] MEDS: PANTOPRAZOLE SODIUM 40 MG/VIAL IV SCH (09:30)
[2019-07-22] MEDS: MIDODRINE HCL 5MG TABLET PO SCH ×2 (09:30→13:00)
[2019-07-22] MEDS: FUROSEMIDE 40MG TABLET PO SCH (09:30)
[2019-07-22] MEDS: DONEPEZIL HCL 5MG TABLET PO SCH (09:30)
[2019-07-22] MEDS: DEXT 5%/0.45% NACL 1000ML 1,000 ML IV SCH (09:31)
[2019-07-22] MEDS ORDERED: METHYLPREDNISOLONE SOD SUCC 125 MG/2 ML VIAL ONE (11:57)
[2019-07-22 12:00] VITALS: BP 84/28
[2019-07-22 16:00] VITALS: BP 77/38
[2019-07-22 20:36] VITALS: BP 71/33
[2019-07-23 00:21] VITALS: BP 76/39
[2019-07-23 04:00] VITALS: BP 80/38
[2019-07-23 08:00] VITALS: BP 87/44
[2019-07-23 12:00] VITALS: BP 70/38
[2019-07-23 16:00] VITALS: BP 74/33
[2019-07-23] MEDS: MORPHINE SULFATE 2 MG/ML CPJ (NOT FOR IM USE) IV PRN ×2 (16:36→20:30)
[2019-07-23 20:20] VITALS: BP 110/90
[2019-07-24 00:06] VITALS: BP 62/21
[2019-07-24 04:00] VITALS: BP 69/22
[2019-07-24 08:00] VITALS: BP 135/51
[2019-07-24] MEDS: MORPHINE SULFATE 2 MG/ML CPJ (NOT FOR IM USE) IV PRN ×2 (09:15→13:41)
[2019-07-24 12:00] VITALS: BP 118/49
[2019-07-24 16:00] VITALS: BP 81/39
[2019-07-24 20:03] VITALS: BP 73/34
[2019-07-25] VITALS: BP 79/40
[2019-07-25 04:00] VITALS: BP 74/36
[2019-07-25 06:21] LABS: CHLORIDE 101 mEq/L (98-107)
[2019-07-25 08:00] VITALS: BP 77/31
[2019-07-25] MEDS: MORPHINE SULFATE 2 MG/ML CPJ (NOT FOR IM USE) IV PRN (09:11)
[2019-07-25 09:53] LABS: HEMATOCRIT 25.9 % (42.0-52.0); HEMOGLOBIN 8.8 g/dL (14.0-18.0); MEAN CORPUSCULAR VOLUME 97.1 fL (80.0-94.0); RED BLOOD CELL COUNT 2.66 mill/uL (4.7-6.1); RED CELL DISTRIBUTION WIDTH 21.5 % (11.6-14.6)
[2019-07-25 10:20] LABS: PLATELET 78 x1000/uL (130-400)
[2019-07-25 12:26] VITALS: BP 78/34
[2019-07-25 16:13] VITALS: BP 74/29
[2019-07-25 20:12] VITALS: BP 68/30
[2019-07-25] MEDS ORDERED: MORPHINE SULFATE 2 MG/ML CPJ (NOT FOR IM USE) IV PRN (20:45)
[2019-07-26] VITALS (7 sets, daily range): BP systolic 63–74; BP diastolic 22–31
[2019-07-26] MEDS ORDERED: MORPHINE SULFATE 10 MG/ML CPJ IM PRN (18:00)
[2019-07-27 00:17] VITALS: BP 58/16
[2019-07-27 04:00] VITALS: BP 61/22
[2019-07-27 08:15] VITALS: BP 52/28
[2019-07-27 11:45] VITALS: BP 58/20
[2019-07-27 16:00] VITALS: BP 58/52
[2019-07-27 20:30] VITALS: BP 55/22
[2019-07-28 00:37] VITALS: BP 53/17
[2019-07-28 04:00] VITALS: BP 66/34
[2019-07-28 08:00] VITALS: BP 56/12
[2019-07-28 12:00] VITALS: BP 53/17
[2019-07-28] MEDS ORDERED: MORPHINE SULFATE 10 MG/ML CPJ IM SCH ×2 (12:00→12:15)
[2019-07-28 14:31] VITALS: BP 53/17
[2019-07-28 15:55] VITALS: BP 52/16
== END 2019-07-28 16:44 | DRG 871 ==
LOC: ER 11:25 → EDBEDREQ 12:31 → 6WST 16:50 → EDBEDREQ 16:55 → ENRESERV 23:16
PROVIDERS: ADMIT Internal Medicine; ATTEND Internal Medicine
PROC: 02HV33Z Insertion of Infusion Device into Superior Vena Cava, Percutaneous Approach (ICD-10-PCS; principal; 2019-07-14)
PROC: B548ZZA Ultrasonography of Superior Vena Cava, Guidance (ICD-10-PCS; 2019-07-14)
PROC: B5181ZA Fluoroscopy of Superior Vena Cava using Low Osmolar Contrast, Guidance (ICD-10-PCS; 2019-07-14)
PROC: 5A1D70Z Performance of Urinary Filtration, Intermittent, Less than 6 Hours Per Day (ICD-10-PCS; 2019-07-14)
PROC: 5A1D70Z Performance of Urinary Filtration, Intermittent, Less than 6 Hours Per Day (ICD-10-PCS; 2019-07-15)
PROC: 5A1D70Z Performance of Urinary Filtration, Intermittent, Less than 6 Hours Per Day (ICD-10-PCS; 2019-07-17)
DX: A41.9 Sepsis, unspecified organism (principal); G82.50 Quadriplegia, unspecified; G93.41 Metabolic encephalopathy; E43 Unspecified severe protein-calorie malnutrition; N17.0 Acute kidney failure with tubular necrosis; D68.9 Coagulation defect, unspecified; I13.0 Hypertensive heart and chronic kidney disease with heart failure and stage 1 through stage 4 chronic kidney disease, or unspecified chronic kidney disease; I50.32 Chronic diastolic (congestive) heart failure; E87.2 Acidosis; E87.1 Hypo-osmolality and hyponatremia; N39.0 Urinary tract infection, site not specified; K92.0 Hematemesis; D61.818 Other pancytopenia; E11.649 Type 2 diabetes mellitus with hypoglycemia without coma; K70.31 Alcoholic cirrhosis of liver with ascites; Z66 Do not resuscitate; I95.9 Hypotension, unspecified; D15.1 Benign neoplasm of heart; E78.5 Hyperlipidemia, unspecified; E78.1 Pure hyperglyceridemia; E87.5 Hyperkalemia; E11.22 Type 2 diabetes mellitus with diabetic chronic kidney disease; D50.0 Iron deficiency anemia secondary to blood loss (chronic); L89.159 Pressure ulcer of sacral region, unspecified stage; S40.819A Abrasion of unspecified upper arm, initial encounter; X58.XXXA Exposure to other specified factors, initial encounter; F03.90 Unspecified dementia, unspecified severity, without behavioral disturbance, psychotic disturbance, mood disturbance, and anxiety; N18.3 Chronic kidney disease, stage 3 (moderate); Z51.5 Encounter for palliative care; Z82.49 Family history of ischemic heart disease and other diseases of the circulatory system; Z87.891 Personal history of nicotine dependence; Z91.81 History of falling; Z79.899 Other long term (current) drug therapy; Y93.89 Activity, other specified; Y92.89 Other specified places as the place of occurrence of the external cause; Y99.8 Other external cause status; Z68.36 Body mass index [BMI] 36.0-36.9, adult
CPT/HCPCS: 36415; 36600; 71045; 76770; 76937; 77001; 80048; 80053; 80076; 81003; 82105; 82140; 82248; 82375; 82533; 82550; 82728; 82805; 82962; 83036; 83520; 83540; 83550; 83605; 83735; 83880; 83935; 84100; 84134; 84145; 84300; 84443; 84484; 85025; 85027; 86160; 86256; 86705; 86706; 86803; 86850; 86900; 87077; 87186; 87340; 92610; 93005; 93970; 99285; C1752; C9113; J0696; J1200; J1642; J1940; J1956; J2270; J2405; J2930; J3430; J3490; P9047